=== PATIENT | female | born 1975 | race Caucasian/White ===

== ENCOUNTER 2021-05-26 07:57 | Outpatient (RCR) | payer SELFPAY | END 2021-08-10 12:36 | disposition home or self-care (01) | LOC: ANHDMC 07:57 | PROVIDERS: PCP Nurse Practitioner Family; Visit Provider Family Medicine | DX: E11.40 Type 2 diabetes mellitus with diabetic neuropathy, unspecified (principal); E11.65 Type 2 diabetes mellitus with hyperglycemia | CPT/HCPCS: 99199 ==

== ENCOUNTER 2022-04-27 09:19 | Emergency (ER) | payer OTHER, SELFPAY ==
[2022-04-27] VITALS (15 sets, daily range): BP systolic 99–124; BP diastolic 56–79; PULSE 90–167; RESP 14–42; TEMP 36.6–36.8; O2SAT 91–95
--- NOTE | ~2022-04-27 | US_ITS ---
EXAMINATION: US soft tissue LE RT DATE: 04/27/2022 20:05 INDICATION: abscesses in R groin/upper thigh, unable to CT . TECHNIQUE: Grayscale and Doppler ultrasound images of the were obtained. COMPARISON: None. FINDINGS: Subcutaneous edema in the right groin/right upper thigh. Multiple areas of subcutaneous ech ogenicity with dirty posterior shadowing. No focal fluid collection detected. IMPRESSION: Subcutaneous edema and emphysema in the area of clinical concern in the right groin/upper thigh, conc erning for gangrenous or necrotizing infection. No sonographic evidence of abscess. Results reported telephonically to HAKAN Niño by Dr. Corey at 8:42 PM on 04/27/2022. Reviewed, dictated and finalized at location K. [employer] F[employer]ER IMPRESSION: Subcutaneous edema and emphysema in the area of clinical concern in the right g roin/upper thigh, concerning for gangrenous or necrotizing infection. No sonogr aphic evidence of abscess. Results reported telephonically to HAKAN Niño by Dr. Corey at 8:42 PM on 04/27/2022.
--- NOTE | 2022-04-27 18:15 | ED.SKABFB ---
HPI - Skin/Abscess/Foreign Bdy General Chief complaint: Skin/Abscess/Foreign Body <LINUS Key Last Filed: 04/28/22 03:19> Stated complaint: boil on inner thigh <LINUS Kye Last Filed: 04/28/22 03:19> Time Seen by Provider: 04/27/22 17:54 <LINUS Key Last Filed: 04/28/22 03:19> Source: patient <LINUS Key Last Filed: 04/28/22 03:19> Mode of arrival: ambulatory <LINUS Key Last Filed: 04/28/22 03:19> Limitations: no limitations <LINUS Key Last Filed: 04/28/22 03:19> History of Present Illness HPI narrative: Patient is a 47 y/o morbidly obese female who presents to the ED with c/o abscesses to her right inner thigh. Patient reports she first noticed the abscesses 1 week ago. She reports having tenderness, redness, swelling in the region. She did note that the abscesses have spontaneously drained some, but not a significant amount. She believes they have popped since being in the waiting room however. She does report history of previous abscesses in the past. Patient also reports recent decreased appetite, nausea, and dysuria, but denies fever. Denies abdominal pain. <LINUS Key Last Filed: 04/28/22 03:19> Related Data Allergies/Adverse reactions: Allergies Allergy/AdvReac Type Severity Reaction Status Date / Time bee pollen Allergy Mild Hives Verified 04/27/22 20:17 Penicillins Allergy Unknown Unknown Verified 04/27/22 20:17 Grass Allergy Mild Hives Uncoded 04/27/22 20:17 <LINUS Key Last Filed: 04/28/22 03:19> Review of Systems Review of Systems: CONSTITUTIONAL: Denies fever, chills, or sweats. CARDIOVASCULAR: Denies chest pain. RESPIRATORY: Denies cough or dyspnea. GASTROINTESTINAL: See HPI. GENITOURINARY: See HPI. SKIN: See HPI. <Suad Up PA-C - Last Filed: 04/28/22 03:19> All systems reviewed & are unremarkable except as noted in HPI and below <Suad Up PA-C - Last Filed: 04/28/22 03:19> [facility] Past Medical History Medical History: Medical History (Updated 04/28/22 @ 03:19 by Suad Up PA-C) Asthma Depression Diabetes mellitus Hypertension Neuropathy <Suad Up PA-C - Last Filed: 04/28/22 03:19> Surgical History Surgical History: Surgical History (Updated 04/27/22 @ 18:40 by Suad Up PA-C) No pertinent past surgical history <Suad Up PA-C - Last Filed: 04/28/22 03:19> Social History Social History: Social History (Updated 04/27/22 @ 18:42 by Suad Up PA-C) Smoking status: Never smoker <Suad Up PA-C - Last Filed: 04/28/22 03:19> Exam Narrative: GENERAL: Mildly ill appearing, very morbidly obese, BMI 74, in no acute distress. HEAD: Normocephalic, atraumatic. NECK: Supple. No adenopathy, no masses. RESPIRATORY: Airway patent, respirations nonlabored. Clear to auscultation bilaterally, no rales, rhonchi, wheezing. CARDIOVASCULAR: Borderline tachycardic with regular rhythm without murmurs, rubs, or gallops. Radial pulses 2+ and equal bilaterally. ABDOMINAL: Soft, nontender, nondistended, no hepatosplenomegaly. Normoactive BS. MUSCULOSKELETAL: Moves all extremities. Strength/ROM intact without gross deformities. Extensive area of erythema, induration, swelling to R proximal inner thigh/groin, extending into inferior and right sided perineum. Two large areas with overlying black eschar and scabbing, central area w/ significant fluctuance vs. crepitus. Severe tenderness to palpation. Draining thick murky brown discharge, very malodorous. SKIN: Warm, dry, normal color. No rashes. NEURO: A&O X3. Speech clear. Cranial nerves II-XII grossly intact. No ataxic movements. PSYCHIATRIC: Appropriate mood and affect. Normal interaction. 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
[2022-04-27 19:50] LABS: Hematocrit 43.6 % (37.0-47.0); Hemoglobin 14.6 g/dL (12.0-15.0); Mean Corpuscular HGB Conc 33.5 g/dl (32-36); Mean Corpuscular Hemoglobin 31.8 pg (26-34); Mean Platelet Volume 12.1 fl (7.4-10.4); Platelet Count Result 242 k/mm3 (150-375); Red Blood Count 4.59 M/mm3 (4.2-5.4); Red Cell Distribution Width 13.3 % (11.5-14.5); White Blood Count 27.7 K/mm3 (4.5-10.0)
[2022-04-27 20:01] LABS: Lactic Acid Reflex 2.8 mmol/L (0.7-2.0)
[2022-04-27 20:04] LABS: Alanine Aminotransferase 23 U/L (6-35); Albumin Level 3.9 g/dL (3.5-5.1); Alkaline Phosphatase 174 U/L (38-126); Anion Gap 20 mmol/L (8-16); Aspartate Amino Transferase 24 U/L (14-36); Bilirubin,Total 2.6 mg/dL (0.2-1.3); Blood Urea Nitrogen 28 mg/dL (7-17); Calcium 8.9 mg/dL (8.4-10.2); Carbon Dioxide 15 mmol/L (22-30); Chloride 87 mmol/L (98-107); Estimated CRCL calculation 51 ml/min; Estimated Glomerular Filt Rate 19; Glucose 609 mg/dL (65-110); Potassium 4.8 mmol/L (3.4-5.0); Sodium 122 mmol/L (137-145)
[2022-04-27] MEDS: SODIUM CHLORIDE 0.9% IV 1,000 ML 999 ML IV CONT ×5 (20:14→22:02)
[2022-04-27] MEDS: METOPROLOL TARTRATE INJ 5 MG/5 ML VIAL IV PUSH ×2 (20:15→22:10)
[2022-04-27 20:19] LABS: Add Urine Microscopic? YES; Appearance Urine Clear (Clear); Bilirubin Urine 2+ (Negative); Blood Urine Trace-Intact (Negative); Color Urine Yellow (Yellow); Glucose Urine UA 3+ mg/dL (Negative); Ketones Urine 2+ mg/dL (Negative); Leukocyte Esterase Ur Negative LEU/UL (Negative); Nitrate Urine Positive (Negative); Protein Urine 2+ mg/dL (Negative); Specific Grav Ur 1.025 (1.001-1.035)
--- NOTE | 2022-04-27 20:21 | ECG_ITS ---
Measurements Intervals [place] Rate: 139 P: [place]: 0 QRS: 10 QRSD: 85 T: 91 QT: 199 QTc: 303 Interpretive Statements ATRIAL FLUTTER/TACHYCARDIA WITH RAPID VENTRICULAR RESPONSE BASELINE ARTIFACT- I, III, AVR, AVL, AVF ABNORMAL ECG COMPARED TO ECG 12/02/2018 01:24:54 ATRIAL FLUTTER NOW PRESENT T-WAVE ABNORMALITY NOW PRESENT Electronically Signed On 04-28-2022 6:50:49 [employer]PPLY CHAIN PROCUREMENT MANAGER by Kolton Castillo D.O.
--- NOTE | 2022-04-27 20:21 | PC.NURSE ---
Talked to Eva in lab at 20:20 to add on Phos MG and Beta Hydroxybut
[2022-04-27 20:23] LABS: Mucus Urine Rare /lpf; Squamous Epithelial Cell Urine Occasional /hpf (Few); WBC Urine 0-3 /hpf
[2022-04-27 20:32] LABS: Band Neutrophils Percent 8 % (0-6); Monocytes Absolute Manual 2.49 K/mm3 (0.1-0.90); Monocytes Percent Manual 9 % (3-9); Neutrophils Absolute Manual 24.09 K/mm3 (1.7-7.2); Neutrophils Percent Manual 79 % (46-73); Platelet Estimate Adequate (Adequate); Total Cells Counted 100
[2022-04-27 20:33] LABS: Magnesium 1.9 mg/dL (1.6-2.3); Phosphorus 4.1 mg/dL (2.5-4.5)
[2022-04-27 20:33] LABS: Schistocytes None Seen (NORMAL)
[2022-04-27 20:53] LABS: Influenza A QL RT-PCR Negative (Negative); Influenza B QL RT-PCR Negative (Negative); RSV RNA, RT-PCR Negative (Negative); SARS-CoV-2 RNA PCR Negative
--- NOTE | 2022-04-27 20:56 | PC.NURSE ---
Talked to Eva in lab at 20:56 to add on Trop I
[2022-04-27 21:08] LABS: Alveolar/Arterial O2 Gradient 48.1 mmHg; Base Excess ABG -7.6 mEq/l (+/-2.0); Carboxyhemoglobin 2.1 % THb (0-2.0); Fractional Inspired Oxygen 21 %; HCO3 ABG 17.3 mEq/l (22.0-26.0); Methemoglobin ABG 0.2 %THb (0-1.5); Oxygen Content ABG 18.2 %vol (16.0-22.0); Oxygen Saturation ABG 90.2 % (95.0-100.0); PCO2 ABG 33.6 mmHg (35.0-45.0); PO2 ABG 61.4 mmHg (80.0-100.0); PO2 FiO2 Ratio Arterial Blood 2.92 %; Reduced Hemoglobin 10.2 %THb (0-5.0); Total Hemoglobin 14.8 g/dL (12.0-18.0); pH ABG 7.329 (7.350-7.450)
[2022-04-27 21:09] LABS: Oxyhemoglobin 87.5 % THb (90.0-100.0)
[2022-04-27 21:10] LABS: Device ROOM AIR; Modified Allen's Test Pass; Site Drawn LEFT RADIAL
[2022-04-27] MEDS: CLINDAMYCIN 900 MG/D5W 50 ML 900 MG/50 ML PIGGYBACK 50 MG IVPB (21:13)
[2022-04-27 21:19] LABS: Beta-Hydroxybutyrate/Acetoacetate 5.38 mmol/L (0.02-0.27); Troponin I 0.034 ng/mL (0.000-0.034)
[2022-04-27 21:29] LABS: Glucose Point of Care > 500 mg/dl (65-105)
[2022-04-27] MEDS: MORPHINE SULFATE (*CRX) 4 MG/ML INJ IV PUSH (22:36)
[2022-04-27] MEDS: INSULIN HUMAN REGULAR (*BKC) 100 UNITS in SODIUM CHLORIDE 0.9% IV 99 ML 10.9 UNITS IV CONT (22:40)
[2022-04-27 22:48] LABS: Reflex Lactic Acid Yes or No Add Lactic
[2022-04-27] MEDS: INSULIN HUMAN REGULAR (*BKC) 100 UNITS/ML IV PUSH (22:55)
[2022-04-27] MEDS: ONDANSETRON INJ 4 MG/2 ML VIAL IV PUSH (23:36)
[2022-04-27 23:48] LABS: Lactic Acid 2.4 mmol/L (0.7-2.0)
[2022-04-27 23:52] LABS: Glucose Point of Care > 500 mg/dl (65-105)
[2022-04-28] VITALS: BP 111/65; PULSE 135; RESP 25; TEMP 36.7; O2SAT 95
== END 2022-04-28 | disposition short-term general hospital (02) ==
PROVIDERS: Physician Assistant; Emergency Provider Emergency Medicine; PCP Physician Assistant
DX: M72.6 Necrotizing fasciitis (principal); R65.20 Severe sepsis without septic shock; I48.91 Unspecified atrial fibrillation; E11.10 Type 2 diabetes mellitus with ketoacidosis without coma; E66.01 Morbid (severe) obesity due to excess calories; Z68.45 Body mass index [BMI] 70 or greater, adult; T38.3X6A Underdosing of insulin and oral hypoglycemic [antidiabetic] drugs, initial encounter; Z20.822 Contact with and (suspected) exposure to COVID-19; J45.909 Unspecified asthma, uncomplicated; I10 Essential (primary) hypertension; E11.40 Type 2 diabetes mellitus with diabetic neuropathy, unspecified; R00.0 Tachycardia, unspecified; R94.31 Abnormal electrocardiogram [ECG] [EKG]
CPT/HCPCS: 36415; 36600; 76882; 80053; 81001; 82010; 82375; 82805; 82948; 83050; 83605; 83735; 84100; 84484; 85025; 87040; 87077; 87186; 87637; 93005; 96361; 96365; 96366; 96367; 96368; 96375; 96376; 99285; J1815; J2270; J2405; J3370; J7030; J7050